=== PATIENT | male | born 1950 | race Caucasian/White ===

== ENCOUNTER 2023-11-26 11:54 | Inpatient (IN) | payer OTHER, MEDICARE ==
[2023-11-26] VITALS (23 sets, daily range): BP systolic 97–155; BP diastolic 56–99; PULSE 81–100; RESP 11–21; TEMP 98.3; O2SAT 82–98
[~2023-11-26] VITALS: Ht 177.8 cm; Wt 81.0 kg
[2023-11-26] MEDS: DOCUMENT DATE & TIME OF BETA-BLOCKER PO ONE (05:30)
[~2023-11-26 11:54] MED LIST: ACET-1025 PO; ALEN70TA80 PO; ASPI81TA52 PO; ATOR10TA87 PO; CALCIUM; CETI10TA14 PO; CHOL100046 PO; CYAN100097 PO; DIGO125T PO; EMPA25TA PO; FERR325T28 PO; FLO0.4C PO; GABA-530 PO; METF-436 PO; METO-395 PO; MULT-1085 PO; OMEG-166 PO; OMEP20TA23 PO; VENL-191 PO
[2023-11-26] MEDS: cefazolin 2gm/D5W 100mL 100 ML IV ONE (12:24)
[2023-11-26] MEDS: famotidine 20mg tablet PO ONE (13:08)
[2023-11-26] MEDS: ringers solution, lacted 1,000 ML IV SCH ×2 (13:09→20:50)
[2023-11-26] MEDS ORDERED: ondansetron/PF 4mg/2ml inj IV PRN ×2 (15:05→20:50)
[2023-11-26] MEDS ORDERED: hydrALAZINE 20mg/ml inj. IV PRN (15:05)
[2023-11-26] MEDS ORDERED: labetalol 20mg/4ml (5mg/ml) syringe IV PRN (15:05)
[2023-11-26] MEDS ORDERED: ROPIVAcaine 0.2% (10 MG/5 ML) BOLUS INJECTION POPLITEAL PRN (15:05)
[2023-11-26] MEDS ORDERED: morphine 2 MG/ML inj. syringe IV PRN ×2 (15:05→20:50)
[2023-11-26] MEDS ORDERED: fentaNYL/PF 50MCG/1 ML 2ML syringe IV PRN ×2 (15:05)
[2023-11-26] MEDS ORDERED: morphine 4 MG/ML inj SYRINge IV PRN (15:05)
[2023-11-26] MEDS: BUPIVACAINE liposomal/PF 13.3 MG/ML vial IM ONE (15:09)
[2023-11-26] MEDS: BUPIVAcaine/PF 5 mg/ml 10ml ONE (15:09)
[2023-11-26] MEDS ORDERED: ROPIVAcaine 0.5% (5mg/ml) 30ml vial ONE (15:29)
[2023-11-26] MEDS ORDERED: propofol inj 20 ML IV ONE (15:33)
[2023-11-26] MEDS ORDERED: ondansetron/PF 4mg/2ml inj ONE (15:33)
[2023-11-26] MEDS ORDERED: fentaNYL/PF 50MCG/1 ML 2ML syringe ONE ×2 (15:35→18:06)
[2023-11-26] MEDS ORDERED: midazolam 1 mg/ML 2ml injection ONE (15:35)
[2023-11-26] MEDS ORDERED: sevoflurane 250ml liquid IH ONE (15:37)
[2023-11-26] MEDS ORDERED: rocuronium 10mg/ml inj IV ONE (16:11)
[2023-11-26] MEDS ORDERED: acetaminophen 1,000mg/100ml IV 100 ML IV ONE (16:17)
[2023-11-26] MEDS ORDERED: labetalol 20mg/4ml (5mg/ml) syringe IV ONE (17:20)
[2023-11-26] MEDS: bacitracin 15gm ointment TP ONE (17:45)
[2023-11-26] MEDS: ROPIVAcaine 0.2%/PF PUMP/bolus 545 ML POPLITEAL SCH (18:40)
[2023-11-26] MEDS ORDERED: mag hydrox/Alum hydrox/simeth 30ml oral suspension PO PRN (20:50)
[2023-11-26] MEDS ORDERED: magnesium sulf-water 4G/100mL 100 ML IV PRN (20:50)
[2023-11-26] MEDS ORDERED: potassium Cl 20 mEq SR tablet PO PRN ×2 (20:50)
[2023-11-26] MEDS ORDERED: magnesium sulf-water 2g/50mL 50 ML IV PRN (20:50)
[2023-11-26] MEDS ORDERED: acetaminophen 325mg tablet PO PRN (20:50)
[2023-11-26] MEDS ORDERED: magnesium hydroxide 30ml (MOM) UD suspension PO PRN (20:50)
[2023-11-26] MEDS ORDERED: potassium Cl 40MEQ/1/2NS 520ml 520 ML IV PRN (20:50)
[2023-11-26] MEDS ORDERED: DEXTROSE 15 GM of carb/4 tabs (each vial/BOTTLE has 4 tablets) PO PRN ×2 (22:10)
[2023-11-26] MEDS ORDERED: glucagon, human recombinant 1mg kit SUBCUT PRN (22:10)
[2023-11-26] MEDS ORDERED: dextrose 50%-water 50ml dispensing syringe IV PRN ×2 (22:10)
[2023-11-26 23:17] LABS: BASOPHILS % (AUTO) 0.1 % (0-1); EOSINOPHILS % (AUTO) 0.1 % (0-6); HEMATOCRIT 33.7 % (42.0-52.0); HEMOGLOBIN 11.1 g/dl (14.0-17.9); LYMPHOCYTES # (AUTO) 0.7 X10'3 (1.1-4.8); LYMPHOCYTES % (AUTO) 7.1 % (21-51); MEAN CORPUSCULAR HEMOGLOBIN 30.7 PG (27.0-31.0); MEAN CORPUSCULAR HGB CONC 32.9 g/dL (33.0-36.5); MEAN CORPUSCULAR VOLUME 93.2 FL (78-98); MEAN PLATELET VOLUME 6.9 FL (7.4-10.4); MONOCYTES # (AUTO) 0.2 X10'3 (0-0.9); MONOCYTES % (AUTO) 2.1 % (2-12); NEUTROPHILS # (AUTO) 9.2 X10'3 (1.8-7.7); NEUTROPHILS % (AUTO) 90.6 % (42-75); PLATELET COUNT 305 X10'3 (140-440); RED BLOOD COUNT 3.62 X10'6 (4.70-6.10); RED CELL DISTRIBUTION WIDTH 14.6 % (11.5-14.5); WHITE BLOOD COUNT 10.2 X10'3 (4.5-11.0)
[2023-11-26 23:44] LABS: ALANINE AMINOTRANSFERASE 32 U/L (12-78); ALBUMIN 2.8 G/DL (3.4-5.0); ALBUMIN/GLOBULIN RATIO 0.7 (1.1-1.5); ALKALINE PHOSPHATASE 61 IU/L (46-116); ANION GAP 7 (8-16); ASPARTATE AMINO TRANSFERASE 24 U/L (10-37); BILIRUBIN,TOTAL 0.4 MG/DL (0.1-1.0); BLOOD UREA NITROGEN 21 MG/DL (7-18); BUN/CREATININE RATIO 15.1 (10.0-20.0); CALCIUM 8.1 MG/DL (8.5-10.1); CHLORIDE 100 MMOL/L (99-107); CREATININE 1.39 MG/DL (0.60-1.10); GLUCOSE 228 MG/DL (70-104); HEMOGLOBIN A1C 7.6 % (4.5-6.2); POTASSIUM 4.5 MMOL/L (3.5-5.1); PRO BRAIN NATRIURETIC PEPTIDE 224 PG/ML (0-450); SODIUM 136 MMOL/L (135-145); TOTAL PROTEIN 7.1 G/DL (6.4-8.2); eCRCL 47 ML/MIN; eGFR 50 ML/MIN
[2023-11-27] VITALS (9 sets, daily range): BP systolic 108–146; BP diastolic 60–83; PULSE 96–111; RESP 16–22; TEMP 97.7–99; O2SAT 95–99
[2023-11-27] MEDS: furosemide 20 MG/2 ML vial IV SCH
[2023-11-27] MEDS: HYDROcodone/acetaminophen 5mg/325mg tablet PO PRN (01:25)
[2023-11-27 05:53] LABS: ALANINE AMINOTRANSFERASE 33 U/L (12-78); ALBUMIN/GLOBULIN RATIO 0.6 (1.1-1.5); ALKALINE PHOSPHATASE 61 IU/L (46-116); ANION GAP 8 (8-16); ASPARTATE AMINO TRANSFERASE 35 U/L (10-37); BASOPHILS % (AUTO) 0.1 % (0-1); BILIRUBIN,TOTAL 0.4 MG/DL (0.1-1.0); BLOOD UREA NITROGEN 25 MG/DL (7-18); CALCIUM 8.7 MG/DL (8.5-10.1); CHLORIDE 100 MMOL/L (99-107); CHOL/HDL RATIO 3.1 (0.00-4.99); CHOLESTEROL 153 MG/DL (0-200); CREATININE 1.39 MG/DL (0.60-1.10); EOSINOPHILS % (AUTO) 0 % (0-6); GLUCOSE 192 MG/DL (70-104); HDL CHOLESTEROL 49 MG/DL (35-60); HEMATOCRIT 35.6 % (42.0-52.0); HEMOGLOBIN 11.7 g/dl (14.0-17.9); LDL CHOLESTEROL 82 MG/DL (50-100); LYMPHOCYTES # (AUTO) 1.1 X10'3 (1.1-4.8); LYMPHOCYTES % (AUTO) 9.3 % (21-51); MAGNESIUM 1.4 MG/DL (1.5-2.4); MEAN CORPUSCULAR HEMOGLOBIN 30.8 PG (27.0-31.0); MEAN CORPUSCULAR HGB CONC 32.8 g/dL (33.0-36.5); MEAN CORPUSCULAR VOLUME 93.8 FL (78-98); MEAN PLATELET VOLUME 7.4 FL (7.4-10.4); MONOCYTES # (AUTO) 0.9 X10'3 (0-0.9); MONOCYTES % (AUTO) 7.3 % (2-12); NEUTROPHILS # (AUTO) 9.9 X10'3 (1.8-7.7); NEUTROPHILS % (AUTO) 83.3 % (42-75); PLATELET COUNT 364 X10'3 (140-440); POTASSIUM 4.3 MMOL/L (3.5-5.1); RED BLOOD COUNT 3.79 X10'6 (4.70-6.10); RED CELL DISTRIBUTION WIDTH 14.4 % (11.5-14.5); SODIUM 138 MMOL/L (135-145); TOTAL PROTEIN 7.7 G/DL (6.4-8.2); TRIGLYCERIDES 112 MG/DL (20-135); WHITE BLOOD COUNT 11.9 X10'3 (4.5-11.0); eCRCL 47 ML/MIN; eGFR 50 ML/MIN
[2023-11-27 06:00] LABS: D-DIMER 5.38 MG/L FEU (0-0.50)
[2023-11-27] MEDS: INSULIN LISPRO 100 UNIT/ML INSULN.PEN MULTI-DOSE SQ SCH (07:00)
[2023-11-27] MEDS: K and/or MAG REPLACEMENT MC SCH (08:00)
[2023-11-27] MEDS: EMPAGLIFLOZIN 25 MG TABLET PO SCH (08:00)
[2023-11-27] MEDS: metoprolol succinate 25mg (24-HOUR) SR. Tablet PO SCH (08:00)
[2023-11-27] MEDS: atorvastatin 10mg tablet PO SCH (08:14)
[2023-11-27] MEDS: digoxin 125mcg (0.125mg) tablet PO SCH (08:14)
[2023-11-27] MEDS: docusate sod 100mg capsule PO SCH (08:16)
[2023-11-27] MEDS: magnesium Cl slow-release 64mg tablet PO PRN (09:43)
[2023-11-27] MEDS ORDERED: iohexol 350MG/ML 100ml bottle IV ONE (10:45)
[2023-11-27] MEDS: gabapentin 100mg capsule PO SCH (16:51)
[2023-11-27] MEDS: normal saline 1000ml 1,000 ML IV SCH (17:33)
[2023-11-27] MEDS: OMEGA-3/DHA/EPA/FISH OIL 1 EACH CAPSULE.DR PO SCH (20:35)
[2023-11-27] MEDS: ferrous sulfate 325mg tablet PO SCH (20:35)
[2023-11-27] MEDS: tamsulosin 0.4mg capsule PO SCH (20:35)
[2023-11-27] MEDS: venlafaxine 37.5mg tablet PO SCH (20:36)
[2023-11-27] MEDS: insulin glargine (Lantus) pen - multi-dose SQ SCH (20:45)
[2023-11-27] MEDS ORDERED: insulin glargine (Lantus) pen - multi-dose SQ SCH (21:00)
[2023-11-28 01:56] VITALS: O2SAT 96
[2023-11-28 06:00] VITALS: BP 148/82; PULSE 100; RESP 17; TEMP 98.2; O2SAT 98
[2023-11-28 06:30] VITALS: O2SAT 98
[2023-11-28 07:34] LABS: BASOPHILS % (AUTO) 0.3 % (0-1); EOSINOPHILS # (AUTO) 0.1 X10'3 (0-0.9); EOSINOPHILS % (AUTO) 0.9 % (0-6); HEMATOCRIT 33.9 % (42.0-52.0); HEMOGLOBIN 10.9 g/dl (14.0-17.9); LYMPHOCYTES # (AUTO) 1.5 X10'3 (1.1-4.8); LYMPHOCYTES % (AUTO) 15.9 % (21-51); MEAN CORPUSCULAR HGB CONC 32.2 g/dL (33.0-36.5); MEAN CORPUSCULAR VOLUME 93.3 FL (78-98); MEAN PLATELET VOLUME 7.4 FL (7.4-10.4); MONOCYTES % (AUTO) 10.4 % (2-12); NEUTROPHILS # (AUTO) 6.7 X10'3 (1.8-7.7); NEUTROPHILS % (AUTO) 72.5 % (42-75); PLATELET COUNT 309 X10'3 (140-440); RED BLOOD COUNT 3.64 X10'6 (4.70-6.10); RED CELL DISTRIBUTION WIDTH 14.5 % (11.5-14.5); WHITE BLOOD COUNT 9.2 X10'3 (4.5-11.0)
[2023-11-28 07:36] LABS: ALANINE AMINOTRANSFERASE 29 U/L (12-78); ALBUMIN 2.8 G/DL (3.4-5.0); ALBUMIN/GLOBULIN RATIO 0.6 (1.1-1.5); ALKALINE PHOSPHATASE 64 IU/L (46-116); ANION GAP 8 (8-16); ASPARTATE AMINO TRANSFERASE 51 U/L (10-37); BILIRUBIN,TOTAL 0.4 MG/DL (0.1-1.0); BLOOD UREA NITROGEN 23 MG/DL (7-18); BUN/CREATININE RATIO 19.2 (10.0-20.0); CALCIUM 8.5 MG/DL (8.5-10.1); CHLORIDE 102 MMOL/L (99-107); GLUCOSE 133 MG/DL (70-104); MAGNESIUM 1.7 MG/DL (1.5-2.4); POTASSIUM 4.2 MMOL/L (3.5-5.1); SODIUM 142 MMOL/L (135-145); TOTAL CARBON DIOXIDE 32.5 MMOL/L (24-32); TOTAL PROTEIN 7.3 G/DL (6.4-8.2); eCRCL 55 ML/MIN; eGFR 59 ML/MIN
[2023-11-28] MEDS: aspirin 81mg, enteric-coated 1 TAB TABLET.DR PO SCH (07:39)
[2023-11-28] MEDS: cholecalciferol (vitamin D3) 1,000 unit (25mcg) tablet PO SCH (07:39)
[2023-11-28] MEDS: multivitamins, therapeutics tablet PO SCH (07:40)
[2023-11-28] MEDS: CALCIUM PO SCH (08:00)
[2023-11-28] MEDS: furosemide 20 MG/2 ML vial IV SCH (09:36)
[2023-11-28] MEDS: metoprolol succinate 25mg (24-HOUR) SR. Tablet PO SCH (09:36)
[2023-11-28 09:49] VITALS: BP 112/77; PULSE 100; RESP 20; TEMP 97.3; O2SAT 97
[2023-11-28 18:00] VITALS: BP 112/54; PULSE 89; RESP 18; TEMP 97.7; O2SAT 93
[2023-11-28 22:00] VITALS: BP 103/69; PULSE 90; RESP 18; TEMP 97.1; O2SAT 95
[2023-11-29 06:00] VITALS: BP 106/73; PULSE 95; RESP 16; TEMP 97.8; O2SAT 95
[2023-11-29 06:05] LABS: BASOPHILS % (AUTO) 0.3 % (0-1); EOSINOPHILS # (AUTO) 0.2 X10'3 (0-0.9); EOSINOPHILS % (AUTO) 1.8 % (0-6); HEMATOCRIT 34.6 % (42.0-52.0); HEMOGLOBIN 11.2 g/dl (14.0-17.9); LYMPHOCYTES # (AUTO) 1.7 X10'3 (1.1-4.8); LYMPHOCYTES % (AUTO) 16.4 % (21-51); MEAN CORPUSCULAR HEMOGLOBIN 30.1 PG (27.0-31.0); MEAN CORPUSCULAR HGB CONC 32.3 g/dL (33.0-36.5); MEAN CORPUSCULAR VOLUME 93.4 FL (78-98); MEAN PLATELET VOLUME 7.3 FL (7.4-10.4); MONOCYTES # (AUTO) 0.9 X10'3 (0-0.9); MONOCYTES % (AUTO) 8.8 % (2-12); NEUTROPHILS # (AUTO) 7.6 X10'3 (1.8-7.7); NEUTROPHILS % (AUTO) 72.7 % (42-75); PLATELET COUNT 324 X10'3 (140-440); RED CELL DISTRIBUTION WIDTH 14.6 % (11.5-14.5); WHITE BLOOD COUNT 10.4 X10'3 (4.5-11.0)
[2023-11-29 06:16] LABS: ALANINE AMINOTRANSFERASE 30 U/L (12-78); ALBUMIN 2.6 G/DL (3.4-5.0); ALBUMIN/GLOBULIN RATIO 0.6 (1.1-1.5); ALKALINE PHOSPHATASE 63 IU/L (46-116); ANION GAP 5 (8-16); ASPARTATE AMINO TRANSFERASE 40 U/L (10-37); BILIRUBIN,TOTAL 0.5 MG/DL (0.1-1.0); BLOOD UREA NITROGEN 24 MG/DL (7-18); BUN/CREATININE RATIO 20.2 (10.0-20.0); CALCIUM 8.6 MG/DL (8.5-10.1); CHLORIDE 101 MMOL/L (99-107); CREATININE 1.19 MG/DL (0.60-1.10); GLUCOSE 132 MG/DL (70-104); MAGNESIUM 1.7 MG/DL (1.5-2.4); POTASSIUM 4.9 MMOL/L (3.5-5.1); SODIUM 138 MMOL/L (135-145); TOTAL CARBON DIOXIDE 32.3 MMOL/L (24-32); TOTAL PROTEIN 7.2 G/DL (6.4-8.2); eCRCL 55 ML/MIN; eGFR 60 ML/MIN
[2023-11-29 07:00] VITALS: RESP 16; O2SAT 95
[2023-11-29] MEDS: oxyCODONE/APAP 5-325mg tablet PO PRN (07:17)
[2023-11-29 07:55] VITALS: BP 104/65; PULSE 106
[2023-11-29 10:00] VITALS: BP 104/64; PULSE 62; RESP 16; TEMP 97.2; O2SAT 94
[2023-11-29 18:00] VITALS: BP 145/78; PULSE 63; RESP 15; TEMP 97.8; O2SAT 96
[2023-11-29 22:00] VITALS: BP 120/80; PULSE 92; RESP 18; TEMP 97.4; O2SAT 98
[2023-11-30 06:00] VITALS: BP 116/78; PULSE 98; RESP 17; TEMP 97.1; O2SAT 94
[2023-11-30 06:01] LABS: BASOPHILS % (AUTO) 0.3 % (0-1); EOSINOPHILS # (AUTO) 0.2 X10'3 (0-0.9); EOSINOPHILS % (AUTO) 2.3 % (0-6); HEMATOCRIT 35.6 % (42.0-52.0); HEMOGLOBIN 11.5 g/dl (14.0-17.9); LYMPHOCYTES # (AUTO) 1.4 X10'3 (1.1-4.8); MEAN CORPUSCULAR HEMOGLOBIN 30.2 PG (27.0-31.0); MEAN CORPUSCULAR HGB CONC 32.4 g/dL (33.0-36.5); MEAN CORPUSCULAR VOLUME 93.1 FL (78-98); MONOCYTES # (AUTO) 0.9 X10'3 (0-0.9); MONOCYTES % (AUTO) 9.3 % (2-12); NEUTROPHILS # (AUTO) 6.8 X10'3 (1.8-7.7); NEUTROPHILS % (AUTO) 73.1 % (42-75); PLATELET COUNT 332 X10'3 (140-440); RED BLOOD COUNT 3.82 X10'6 (4.70-6.10); RED CELL DISTRIBUTION WIDTH 14.4 % (11.5-14.5); WHITE BLOOD COUNT 9.4 X10'3 (4.5-11.0)
[2023-11-30 06:34] LABS: ALANINE AMINOTRANSFERASE 35 U/L (12-78); ALBUMIN 2.6 G/DL (3.4-5.0); ALBUMIN/GLOBULIN RATIO 0.5 (1.1-1.5); ALKALINE PHOSPHATASE 63 IU/L (46-116); ANION GAP 6 (8-16); ASPARTATE AMINO TRANSFERASE 36 U/L (10-37); BILIRUBIN,TOTAL 0.6 MG/DL (0.1-1.0); BLOOD UREA NITROGEN 21 MG/DL (7-18); BUN/CREATININE RATIO 17.8 (10.0-20.0); CALCIUM 8.7 MG/DL (8.5-10.1); CHLORIDE 100 MMOL/L (99-107); CREATININE 1.18 MG/DL (0.60-1.10); GLUCOSE 126 MG/DL (70-104); MAGNESIUM 1.9 MG/DL (1.5-2.4); POTASSIUM 4.4 MMOL/L (3.5-5.1); SODIUM 137 MMOL/L (135-145); TOTAL CARBON DIOXIDE 31.2 MMOL/L (24-32); TOTAL PROTEIN 7.7 G/DL (6.4-8.2); eCRCL 56 ML/MIN; eGFR 60 ML/MIN
[2023-11-30 07:00] VITALS: BP 127/82; PULSE 103; TEMP 98.5
[2023-11-30] MEDS: metoprolol succinate 25mg (24-HOUR) SR. Tablet PO SCH (09:06)
[2023-11-30 09:12] VITALS: RESP 18; O2SAT 93
[2023-11-30 10:00] VITALS: BP 102/63; PULSE 96; RESP 18; TEMP 99.4; O2SAT 93
[2023-11-30 18:00] VITALS: BP 116/73; PULSE 95; RESP 16; TEMP 99.1; O2SAT 92
[2023-11-30 19:00] VITALS: RESP 17; O2SAT 98
[2023-12-01 06:13] LABS: BASOPHILS % (AUTO) 0.3 % (0-1); EOSINOPHILS # (AUTO) 0.3 X10'3 (0-0.9); EOSINOPHILS % (AUTO) 2.6 % (0-6); HEMATOCRIT 34.6 % (42.0-52.0); HEMOGLOBIN 11.4 g/dl (14.0-17.9); LYMPHOCYTES # (AUTO) 1.6 X10'3 (1.1-4.8); LYMPHOCYTES % (AUTO) 15.6 % (21-51); MEAN CORPUSCULAR HEMOGLOBIN 30.5 PG (27.0-31.0); MEAN CORPUSCULAR VOLUME 92.5 FL (78-98); MEAN PLATELET VOLUME 7.3 FL (7.4-10.4); MONOCYTES # (AUTO) 0.9 X10'3 (0-0.9); MONOCYTES % (AUTO) 9.1 % (2-12); NEUTROPHILS # (AUTO) 7.2 X10'3 (1.8-7.7); NEUTROPHILS % (AUTO) 72.4 % (42-75); PLATELET COUNT 334 X10'3 (140-440); RED BLOOD COUNT 3.75 X10'6 (4.70-6.10); RED CELL DISTRIBUTION WIDTH 14.4 % (11.5-14.5)
[2023-12-01 06:32] LABS: ALANINE AMINOTRANSFERASE 37 U/L (12-78); ALBUMIN 2.4 G/DL (3.4-5.0); ALBUMIN/GLOBULIN RATIO 0.5 (1.1-1.5); ALKALINE PHOSPHATASE 63 IU/L (46-116); ANION GAP 3 (8-16); ASPARTATE AMINO TRANSFERASE 37 U/L (10-37); BILIRUBIN,TOTAL 0.4 MG/DL (0.1-1.0); BLOOD UREA NITROGEN 28 MG/DL (7-18); BUN/CREATININE RATIO 22.6 (10.0-20.0); CALCIUM 8.6 MG/DL (8.5-10.1); CHLORIDE 99 MMOL/L (99-107); CREATININE 1.24 MG/DL (0.60-1.10); GLUCOSE 145 MG/DL (70-104); POTASSIUM 4.9 MMOL/L (3.5-5.1); SODIUM 134 MMOL/L (135-145); TOTAL CARBON DIOXIDE 31.7 MMOL/L (24-32); TOTAL PROTEIN 7.5 G/DL (6.4-8.2); eCRCL 53 ML/MIN; eGFR 57 ML/MIN
[2023-12-01] MEDS: lactose-reduced food (Ensure High Protein) 237ml bottle PO SCH (12:51)
[2023-12-01 18:00] VITALS: BP 124/77; PULSE 95; RESP 16; TEMP 98.3; O2SAT 92
[2023-12-01] MEDS: JUVEN Shake w/Arg/Glut/Ca2+Bmb (Juven 19.3gm) pkt 240ml PO SCH (18:03)
[2023-12-01 22:00] VITALS: BP 127/76; PULSE 92; RESP 18; TEMP 96.2; O2SAT 93
[2023-12-02 06:00] VITALS: BP 113/74; PULSE 89; RESP 16; TEMP 96.6; O2SAT 94
[2023-12-02 08:00] VITALS: BP 102/64; PULSE 109; RESP 12; RESP 14; TEMP 97.5; O2SAT 94; O2SAT 95
[2023-12-02] MEDS: calcium carbonate 500mg tablet PO SCH (08:35)
[2023-12-02] MEDS: cholecalciferol (vitamin D3) 1,000 unit (25mcg) tablet PO SCH (08:40)
[2023-12-02 10:00] VITALS: BP 115/71; PULSE 106; RESP 14; TEMP 97.3; O2SAT 94
[2023-12-02] MEDS ORDERED: EMPAGLIFLOZIN 25 MG TABLET PO SCH (13:48)
[2023-12-02 15:23] VITALS: BP 106/62; PULSE 102; RESP 12; TEMP 98.6; O2SAT 91
== END 2023-12-02 16:27 | DRG 492 ==
LOC: PRE-OP 11:54 → UNDOADMIN 20:57 → ORTHO 4S 20:57 → PRE-OP 22:45 → ORTHO 4S 11-27 19:00
PROVIDERS: ADMIT Internal Medicine Critical Care Medicine; ATTEND Family Medicine
PROC: 0QSG04Z Reposition Right Tibia with Internal Fixation Device, Open Approach (ICD-10-PCS; 2023-11-26)
PROC: 3E0T3BZ Introduction of Anesthetic Agent into Peripheral Nerves and Plexi, Percutaneous Approach (ICD-10-PCS; 2023-11-26)
PROC: 0QSJ04Z Reposition Right Fibula with Internal Fixation Device, Open Approach (ICD-10-PCS; principal; 2023-11-26 15:37)
PROC: B32T1ZZ Computerized Tomography (CT Scan) of Left Pulmonary Artery using Low Osmolar Contrast (ICD-10-PCS; 2023-11-27)
PROC: B3201ZZ Computerized Tomography (CT Scan) of Thoracic Aorta using Low Osmolar Contrast (ICD-10-PCS; 2023-11-27)
PROC: B32S1ZZ Computerized Tomography (CT Scan) of Right Pulmonary Artery using Low Osmolar Contrast (ICD-10-PCS; 2023-11-27)
DX: S82.851A Displaced trimalleolar fracture of right lower leg, initial encounter for closed fracture (principal); I50.33 Acute on chronic diastolic (congestive) heart failure; J96.01 Acute respiratory failure with hypoxia; N17.0 Acute kidney failure with tubular necrosis; G47.33 Obstructive sleep apnea (adult) (pediatric); I11.0 Hypertensive heart disease with heart failure; E11.9 Type 2 diabetes mellitus without complications; Z66 Do not resuscitate; D50.8 Other iron deficiency anemias; F32.A Depression, unspecified; X58.XXXA Exposure to other specified factors, initial encounter; Y93.89 Activity, other specified; Y92.89 Other specified places as the place of occurrence of the external cause; Z91.198 Patient's noncompliance with other medical treatment and regimen for other reason; Y99.8 Other external cause status
CPT/HCPCS: 36415; 71045; 71275; 73600; 76000; 80053; 80061; 82948; 83036; 83735; 83880; 85025; 85379; 87081; 93005; 93306; 97110; 97116; 97161; 97530; A4615; A4618; A6223; A6253; A6449; A7000; C1713; C9290; G0378; J0131; J0665; J0690; J1100; J1815; J1940; J2250; J2405; J2704; J2795; J3010; J3490; J7030; J7120; Q9967